=== PATIENT | female | born 1985 | race Caucasian/White ===

== ENCOUNTER 2021-05-03 07:29 | Emergency (ER) | payer MEDICAID, SELFPAY ==
[2021-05-03 07:38] VITALS: BP 145/85; PULSE 112; RESP 20; TEMP 36.8; O2SAT 98; BMI 41.3
[2021-05-03 07:43] VITALS: BP 146/78; PULSE 91; RESP 16; O2SAT 99
--- NOTE | 2021-05-03 07:56 | US_ITS ---
WS: [id number] ULTRASOUND EARLY TECHNIQUE: Transabdominal sonography of the pelvis was performed. CLINICAL INFORMATION: Right side pelvic pain, 10 weeks preg LMP: 02/19/2021 Beta hCG: Unknown. COMPARISON: None. FINDINGS: Closed Cervix measures 6.1 cm UTERUS AND GESTATIONAL SAC Intrauterine gestations: Estimated gestational age: 10w1d Estimated delivery November 28, 2021 [place] rump length (CRL): 3.3 cm. heart motion: 171 BPM. Subchorionic hemorrhage: None. OVARIES Right ovary: Simple right ovarian cyst measuring 1.6 x 1.6 cm Left ovary: Normal. FREE FLUID None. Right lower quadrant scan. Appendix not visualized. US/US OB limited [id number] IMPRESSION: 1. Single live intrauterine with pole. 2. Estimated gestational age; 10w1d 3. No free fluid in the cul-de-sac. 4. Appendix not visualized.
--- NOTE | 2021-05-03 07:59 | W.ED.PREGNAN ---
HPI - General: Chief complaint: Abdominal Pain Stated complaint: 10 WKS ,R GROIN CRAMPING Time Seen by Provider: 05/03/21 07:46 History of Present Illness: HPI Narrative: Patient is a 35-year-old female that is 10 weeks comes to the ED with right-sided pelvic pain. Symptoms started 2 days ago. Pain is located in the right pelvic region and radiates down into her right groin. She says it is episodic pain initially but within the last day has become more constant. She describes pain as sharp and it is rated a 5 out of 10 currently. Pain worsens when she walks and puts pressure on her her right leg. She has not taken any xwbt-[id number]-opewaga Tylenol for pain. Denies fever, nausea/vomiting, vaginal bleeding, vaginal discharge, bowel or UTI symptoms. Date of Last Menstrual Period: 02/19/21 Associated symptoms: Deny abdominal pain, dysuria, headache(s), nausea or vomiting Related Data: : 4 Review of Systems Const: Denies: fever(s), chills or fatigue Eyes: Denies: change in vision or eye discomfort ENMT: Denies: throat pain, odynophagia, nasal discharge or nasal congestion Card: Denies: chest pain, palpitations, edema, swelling of feet/ankles, dyspnea on exertion or orthopnea Resp: Denies: dyspnea, productive cough or non-productive cough GI: Denies: abdominal pain, nausea, vomiting, diarrhea, constipation or hematochezia : Reports: pelvic pain (Right sided) and other (10 weeks ); Denies: flank pain, dysuria or hematuria Musc: Denies: neck pain, back pain or extremity swelling Skin/Breast: Denies: rash or new lesions Neuro: Denies: headache(s), numbness in extremities or weakness in extremities PFSH ED PFSH: Medical History Anxiety and depression Female Reproductive History: Date of last menstrual period: 02/19/21 : 4 Physical Exam Const: COMMON NORMALS: no acute distress, patient oriented x3 and alert GENERAL APPEARANCE: cooperative and comfortable NUTRITIONAL APPEARANCE: obese HENMT: COMMON NORMALS: normocephalic HEAD & SCALP: normocephalic MOUTH: Normal oral and palatal mucosa present THROAT: posterior oropharynx normal and uvula midline Neck/C-Spine: COMMON NORMALS: supple GENERAL: Yes normal visual inspection Resp: COMMON NORMALS: normal respiratory effort, No retractions, No use of accessory muscles and clear to auscultation bilaterally AUSCULTATION: clear to auscultation bilaterally Cardio: COMMON NORMALS: regular rate, regular rhythm, S1 normal heart sound present, S2 normal heart sound present, No gallops present (Cardio), No clicks present (Cardio), No murmurs present (Cardio) and Peripheral pulses 2+ throughout RATE: regular rate RHYTHM: regular rhythm HEART SOUNDS: S1 normal heart sound present and S2 normal heart sound present PERIPHERAL PULSES: Peripheral pulses 2+ throughout GI: COMMON NORMALS: Normal to inspection, nondistended, normoactive bowel sounds present, Soft to palpation, non-tender and no masses PALPATION: Yes Soft to palpation OTHER: Patient has no palpable right lower quadrant tenderness or any other abdominal tenderness noted upon exam. : COMMON NORMALS: Yes no CVA tenderness BLADDER/KIDNEY EXAM: Yes no CVA tenderness Back/Pelvis: COMMON NORMALS: no CVA tenderness Extremity: COMMON NORMALS: normal to inspection Neuro: COMMON NORMALS: patient oriented x3 and moves all extremities SENSORIUM/ORIENTATION: Yes alert Skin: GENERAL SKIN EXAM: dry skin Course Vital Signs: Vital signs: Vital Signs Temperature 98.3 F 05/03/21 07:38 Pulse Rate 88 05/03/21 10:08 Respiratory Rate 16 05/03/21 10:08 Blood Pressure 134/78 05/03/21 10:08 Pulse Oximetry 97 05/03/21 10:08 MDM - OB/Uterine Contractions MDM Narrative: Medical decision making narrative: Patient is a G4, P3 35-year-old female that is 10 weeks comes to the ED right pelvic pain. She denies any vaginal bleeding or vaginal discharge, fever, chills, nausea/vomiting. Exam shows a healthy nontoxic appearing patient in no acute distress or pain. Abdomen is nontender to palpation in all 4 quadrants. Vitals are stable. CBC, CMP and UA were unremarkable. hCG quant 50,953. Ultrasound of the pelvis showed a long intrauterine that is measuring at about 10 weeks gestation. No other acute findings. Patient diagnosed with pelvic pain during and discharged home. She has an appointment with Dr. Carlson in 1 week. Return to ED precautions given. Patient understood and agreed with plan. Lab Data: Attestation: I reviewed the patient's lab results. Labs: Lab Results 05/03/21 05/03/21 05/03/21 Range/Units 08:10 08:10 08:53 WBC 11.1 H (4.0-10.0) 10^3/ uL RBC 4.44 (4.1-5.3) 10^6/u L Hgb 14.1 (11.5-15.3) g/dL Hct 41.7 (37.0-47.0) % MCV 93.9 (81-99) fl MCH 31.8 (28.0-34.0) pg MCHC 33.8 (30.0-36.0) g/dL RDW 12.8 (12.1-15.1) % Plt Count 260 (130-400) 10^3/c mm MPV 10.0 (7.4-10.4) fL Neut % (Auto) 72.8 % Lymph % (Auto) 17.4 % [place] % (Auto) 6.0 % Eos % (Auto) 3.1 % Baso % (Auto) 0.3 % Neut # (Auto) 8.08 H (1.8-7.7) 10^3/u L Lymph # (Auto) 1.9 (0.8-4.8) 10^3/u L [place] # (Auto) 0.7 (0.2-0.9) 10^3/u L Eos # (Auto) 0.4 (0.0-0.8) 10^3/u L Baso # (Auto) 0.0 (0.0-0.1) 10^3/u L Nucleated RBC % (a uto) 0 % Nucleated RBCs # 0.0 /100WBC Sodium 136 (136-145) mmol/L Potassium 3.9 (3.5-5.1) mmol/L Chloride 103 (98-107) mmol/L Carbon Dioxide 21 L (22-29) mmol/L Anion Gap 15.9 (5-19) BUN 5 L (6-20) mg/dL Creatinine 0.4 L (0.5-0.9) mg/dL GFR Calculation 183.8 H (90-130) mL/min Glucose 94 (65-115) mg/dL Calculated Osmolal ity 279 L (285-295) mOsm/k g Calcium 9.0 (8.5-10.5) mg/dL Total Bilirubin 0.2 (0.15-1.2) mg/dL AST 8 (0-32) U/L ALT 21 (0-33) U/L Alkaline Phosphata se 86 (35-105) IU/L Total Protein 6.8 (6.6-8.7) g/dL Albumin 4.0 (3.5-5.2) g/dL Globulin 2.8 (1.3-4.6) g/dL Ser , [place] [address].00 mIU/mL Urine Color Straw (Yellow) Urine Appearance Clear (CLEAR) Urine pH 8 H (5-7) Ur Specific Gravit y 1.005 (1.005-1.030) Urine Protein Neg (Negative) Urine Glucose (UA) Norm (Normal) Urine Ketones Negative (Negative) Urine Blood 2+ H (Negative) Urine Nitrate Negative (Negative) Urine Bilirubin Neg (Negative) Prot Sulfosalicyli c Acd Negative (Negative) Urine Urobilinogen Norm (Negative) mg/dL Ur Leukocyte Rani ase Negative (Negative) Urine RBC 5-10 H (0-2) /hpf Urine WBC 0-4 H (0-5) /hpf Ur Squamous Epith Cells 0-4 H (0-5) /hpf Amorphous Sediment Not Reportable Urine Bacteria Trace (NONE) /hpf Imaging Data^: US OB: Attestation: I personally reviewed and interpreted this imaging study as follows: Radiologist's impression: [address] [address] Ultrasound Report Signed Patient: Stephanie Milian Unit #: [id number] : 1985 Age/Sex: 35 / F ADM Date: 05/03/21 Loc: ER Room/Bed: Attending Dr: Ordering Provider/Ordering MD: Austin Du Date of Service: 05/03/21 Procedure(s): US OB limited [id number] Accession Number(s): [id number] Report Number: [id number] WS: [id number] ULTRASOUND EARLY TECHNIQUE: Transabdominal sonography of the pelvis was performed. CLINICAL INFORMATION: Right side pelvic pain, 10 weeks preg LMP: 02/19/2021 Beta hCG: Unknown. COMPARISON: None. FINDINGS: Closed Cervix measures 6.1 cm UTERUS AND GESTATIONAL SAC Intrauterine gestations: Estimated gestational age: 10w1d Estimated delivery November 28, 2021 [place] rump length (CRL): 3.3 cm. heart motion: 171 BPM. Subchorionic hemorrhage: None. OVARIES Right ovary: Simple right ovarian cyst measuring 1.6 x 1.6 cm Left ovary: Normal. FREE FLUID None. Right lower quadrant scan. Appendix not visualized. US/ OB limited [id number] IMPRESSION: 1. Single live intrauterine with pole. 2. Estimated gestational age; 10w1d 3. No free fluid in the cul-de-sac. 4. Appendix not visualized. Dictated By: Robert Swartz MD Signed By: Robert Swartz MD Signed Date/Time: 05/03/21938 DD/ 4 Discharge Plan Discharge Patient Disposition: Home Clinical Impression: Pelvic pain during Condition: Stable Prescriptions: No Action ceftriaxone 1 gram recon soln 1 gm IM ONCE Qty: 1 RF: 0 dexamethasone sodium phosphate 10 mg/mL solution 10 mg IM ONCE Qty: 1 RF: 0 amoxicillin-pot clavulanate [Augmentin] 875-125 mg tablet 1 tab PO BID 7 Days Qty: 14 RF: 0 sertraline [Zoloft] 50 mg tablet 50 mg PO DAILY Qty: 30 RF: 0 Discharge Orders: Discharge ED (Routine); Ordered 05/03/21 Ordered By: Austin Du Referrals: Roger Carlson MD [Primary Care Provider] - Discharge Diet: Regular Discharge Activity: Resume usual activity Patient Instructions: (ED) Activity Restrictions/Additional Instructions: Follow-up with Dr. Carlson at your next scheduled appointment. Take [id number] Tylenol per bottle instruction for any pain. Return to the ER or your medical provider if condition worsens. Please read and understand discharge instructions. Thank you for choosing [facility] for your healthcare needs today. Please realize this is an emergency room and that we are providing you with a medical screening exam and this may not be complete and all inclusive of all the testing and or work up that you may need to determine your ailment or severity of your illness. It is very important that you follow up as instructed or that you return to the Emergency Department should you have concerns or if your condition changes or worsens in any way. Coding Level of Care Code ED Electrolysis Engineer for Zachary Knott Exam Comprehensive
[2021-05-03 08:17] LABS: Basophils % 0.3 %; Eosinophils # 0.4 10^3/uL (0.0-0.8); Eosinophils % 3.1 %; Hematocrit 41.7 % (37.0-47.0); Hemoglobin 14.1 g/dL (11.5-15.3); Lymphocytes # 1.9 10^3/uL (0.8-4.8); Lymphocytes % 17.4 %; Mean Corpuscular HGB Conc 33.8 g/dL (30.0-36.0); Mean Corpuscular Hemoglobin 31.8 pg (28.0-34.0); Mean Corpuscular Volume 93.9 fl (81-99); Monocytes # 0.7 10^3/uL (0.2-0.9); Neutrophils # 8.08 10^3/uL (1.8-7.7); Neutrophils % 72.8 %; Nucleated Red Blood Cells % 0 %; Platelet Count 260 10^3/cmm (130-400); Red Blood Count 4.44 10^6/uL (4.1-5.3); Red Cell Distribution Width 12.8 % (12.1-15.1); White Blood Count 11.1 10^3/uL (4.0-10.0)
[2021-05-03 08:46] LABS: Alanine Aminotransferase 21 U/L (0-33); Alkaline Phosphatase 86 IU/L (35-105); Anion Gap 15.9 (5-19); Aspartate Amino Transferase 8 U/L (0-32); Blood Urea Nitrogen 5 mg/dL (6-20); Carbon Dioxide 21 mmol/L (22-29); Chloride 103 mmol/L (98-107); Globulin 2.8 g/dL (1.3-4.6); Glomerular Filtration Rate 183.8 mL/min (90-130); Glucose 94 mg/dL (65-115); Osmolality Calculated 279 mOsm/kg (285-295); Potassium 3.9 mmol/L (3.5-5.1); Sodium 136 mmol/L (136-145); Total Bilirubin 0.2 mg/dL (0.15-1.2); Total Protein 6.8 g/dL (6.6-8.7)
[2021-05-03] MEDS: acetaminophen 500 mg Tablet 1000 MG PO (08:48)
[2021-05-03 08:49] VITALS: BP 133/79; PULSE 87; RESP 14; O2SAT 98
[2021-05-03 09:35] LABS: Bilirubin Urine Neg (Negative); Blood Urine 2+ (Negative); Glucose Urine UA Norm (Normal); Ketones Urine Negative (Negative); Leukocyte Esterase Urine Negative (Negative); Nitrate Urine Negative (Negative); Protein Urine Neg (Negative); Specific Gravity, Urine 1.005 (1.005-1.030); Sulfosalicylic Acid Urine Negative (Negative); Urine Appearance Clear (CLEAR); Urine Color Straw (Yellow); Urobilinogen Urine Norm (Negative); pH Urine 8 (5-7)
[2021-05-03 09:36] LABS: Add Urine Culture? No; Bacteria Urine TRACE /hpf; Squamous Epithelial Cell Urine 0-4 /hpf (0-5); WBC Urine 0-4 /hpf (0-5)
[2021-05-03 10:08] VITALS: BP 134/78; PULSE 88; RESP 16; O2SAT 97
== END 2021-05-03 10:08 | disposition home or self-care (01) ==
PROVIDERS: Emergency Provider Physician Assistant; PCP Family Medicine
DX: O26.891 Other specified pregnancy related conditions, first trimester (principal); R10.2 Pelvic and perineal pain; Z3A.10 10 weeks gestation of pregnancy
CPT/HCPCS: 76815; 80053; 81001; 84702; 85025; 99283

== ENCOUNTER 2021-06-05 16:55 | Emergency (ER) | payer MEDICAID, SELFPAY ==
[2021-06-05 17:20] VITALS: PULSE 95; RESP 18; TEMP 37.1; O2SAT 98; BMI 41.8
--- NOTE | 2021-06-05 17:53 | USR_ITS ---
PROCEDURE INFORMATION: Exam: US , Limited Exam date and time: 06/05/2021 5:53 PM Age: 35 years old Clinical indication: complicated by abdominal or pelvic pain; Right lower quadrant; Second trimester (14 weeks 0 days to 27 weeks 6 days); Gestational age or lmp: 15 w 1 day; ; Additional info: Transabdominal eval of baby TECHNIQUE: Imaging protocol: Real-time ultrasound of the maternal uterus with image documentation. Exam focused on the clinical indication. COMPARISON: US OB limited [id number] 05/03/2021 8:23 AM FINDINGS: Gestation: Single live intrauterine gestation. heart rate: 150 bpm. Placenta: No subchorionic hemorrhage. BIOMETRY: Gestational age (AUA): 15 weeks 1 day. Estimated due date (AUA): 11/26/2021 Femur length: 15 weeks 1 day MATERNAL: Uterus: Uterine contours are normal. The cervix is long and closed. US/US OB limited [id number] IMPRESSION: Single live intrauterine of 15 weeks 1 day. No apparent complications.
[2021-06-05 18:07] VITALS: BP 152/75; PULSE 98; RESP 16; TEMP 36.8; O2SAT 98
[2021-06-05] MEDS: acetaminophen 500 mg Tablet PO (18:22)
[2021-06-05 18:41] LABS: Add Urine Microscopic? YES; Bilirubin Urine Neg (Negative); Blood Urine 3+ (Negative); Glucose Urine UA Norm (Normal); Ketones Urine Negative (Negative); Leukocyte Esterase Urine Negative (Negative); Nitrate Urine Negative (Negative); Protein Urine Neg (Negative); Urine Appearance Clear (CLEAR); Urine Color Yellow (Yellow); Urobilinogen Urine Norm (Negative); pH Urine 6 (5-7)
[2021-06-05 18:47] LABS: RBC Urine 15-25 /hpf (0-2)
[2021-06-05 18:48] LABS: Add Urine Culture? Yes; Bacteria Urine TRACE /hpf; Mucus Urine TRACE /hpf; Squamous Epithelial Cell Urine 0-4 /hpf (0-5)
--- NOTE | 2021-06-05 18:58 | W.ED.GENADLT ---
HPI - General Adult General: Chief complaint: Abdominal Pain Stated complaint: 15 weeks /cramping since yesterday Time Seen by Provider: 06/05/21 17:53 History of Present Illness: HPI narrative: 35F F presenting to the ED for pelvic cramping. Intermittent every 3-4 hrs. Patient denies any regular or forceful contractions. Denies any new vaginal discharge, passage of clots, gush of fluid, fever/chills, worsening dental pain, nausea/vomiting or any other acute findings. Patient is followed by Dr. Ac. Onset: 3 days ago Duration:3 days Location:home Severity:mild/moderate Review of Systems Narrative: Constitutional: No fever, no chills. HEENT: No vision changes CV: No chest pain, no palpitations PULM: no cough, no dyspnea. GI: No abdominal pain, no N/V/D. : No dysuria, +pelvic cramps MSKEL: No muscle pain SKIN: No new rashes, no lesions. NEURO: No headache, no focal weakness. HEME: No visible bruises PSYCH: Normal mood PFSH ED PFSH: Medical History Anxiety and depression Female Reproductive History: Date of last menstrual period: 02/19/21 : 4 Physical Exam Narrative: EXAM NARRATIVE: Head: Atraumatic Eyes: PERRL, conjunctiva without injection ENT: Mucous membrane moist NECK: Supple, ROM intact LUNGS: LCTAB, no crackles/rhonchi CV: RRR ABDOMEN: Soft, nontender in all quadrants EXTREMITY: Normal ROM SKIN: No rash or erythema NEURO: Awake and alert, no focal motor deficits PSYCH: Normal mood and affect Course Vital Signs: Vital signs: Vital Signs Temperature 98 F 06/05/21 19:04 Pulse Rate 96 06/05/21 19:04 Respiratory Rate 16 06/05/21 19:04 Blood Pressure 145/82 06/05/21 19:04 Pulse Oximetry 99 06/05/21 19:04 MDM - General Adult MDM Narrative: Medical decision making narrative: 35-year-old female who presents the emergency room with pelvic cramps. On exam, patient is hemodynamically stable. Deferred pelvic exam per request of patient. Transabdominal ultrasound confirms IUP. At present time, given no signs of vaginal bleeding or regular/or frequent contraction, decision was made to defer blood work. I have given patient Tylenol with some symptomatic improvement. Patient is instructed to follow-up with Dr. Ac for further evaluation of symptoms. Disposition: Discharge. Patient counseled regarding diagnostic impression, treatment plan. Patient given ED strict return precautions to return for continuation, worsening, or development of new symptoms. Instructed to f/u w/ PCP regarding symptoms today. Patient verbalized understanding. Lab Data: Labs: Lab Results 06/05/21 18:19 Urine Color Yellow (Yellow) Urine Appearance Clear (CLEAR) Urine pH 6 (5-7) Ur Specific Gravit y 1.010 (1.005-1.030) Urine Protein Neg (Negative) Urine Glucose (UA) Norm (Normal) Urine Ketones Negative (Negative) Urine Blood 3+ H (Negative) Urine Nitrate Negative (Negative) Urine Bilirubin Neg (Negative) Urine Urobilinogen Norm mg/dL mg/dL (Negative) Ur Leukocyte Rani ase Negative (Negative) Urine RBC 15-25 /hpf H /hpf (0-2) Urine WBC None /hpf /hpf (0-5) Ur Squamous Epith Cells 0-4 /hpf H /hpf (0-5) Amorphous Sediment Not Reportable Urine Bacteria Trace /hpf /hpf (NONE) Urine Mucus Trace /hpf /hpf Imaging Data^: Other Imaging: Radiologist's impression: [address] [id number] ReportSigned Patient: Stephanie Milian #: [id number]: 1985Acct#:[id number]/Sex: 35 / FADM Date: 06/05/21Loc: ERRoom/Bed:Attending Dr: Ordering Provider/Ordering MD: Robert Mccoy MD Date of Service: 06/05/21 Procedure(s): US OB limited [id number] Accession Number(s): [id number] Report Number: [id number] PROCEDURE INFORMATION: Exam: US , Limited Exam date and time: 06/05/2021 5:53 PM Age: 35 years old Clinical indication: complicated by abdominal or pelvic pain; Right lower quadrant; Second trimester (14 weeks 0 days to 27 weeks 6 days); Gestational age or lmp: 15 w 1 day; ; Additional info: Transabdominal eval of baby TECHNIQUE: Imaging protocol: Real-time ultrasound of the maternal uterus with image documentation. Exam focused on the clinical indication. COMPARISON: OB limited [id number] 05/03/2021 8:23 AM FINDINGS: Gestation: Single live intrauterine gestation. heart rate: 150 bpm. Placenta: No subchorionic hemorrhage. BIOMETRY: Gestational age (AUA): 15 weeks 1 day. Estimated due date (AUA): 11/26/2021 Femur length: 15 weeks 1 day MATERNAL: Uterus: Uterine contours are normal. The cervix is long and closed. US/ OB limited [id number] IMPRESSION: Single live intrauterine of 15 weeks 1 day. No apparent complications. Dictated By:Jakob Currieigned By:Jakob Currie Date/Time:06/05/21D/ 50 Discharge Plan Discharge Patient Disposition: Home Clinical Impression: Pelvic cramping Condition: Stable Prescriptions: New acetaminophen 500 mg tablet 500 mg PO Q6H PRN (Reason: pain) 5 Days Qty: 20 RF: 0 No Action ceftriaxone 1 gram recon soln 1 gm IM ONCE Qty: 1 RF: 0 dexamethasone sodium phosphate 10 mg/mL solution 10 mg IM ONCE Qty: 1 RF: 0 amoxicillin-pot clavulanate [Augmentin] 875-125 mg tablet 1 tab PO BID 7 Days Qty: 14 RF: 0 sertraline [Zoloft] 50 mg tablet 50 mg PO DAILY Qty: 30 RF: 0 Discharge Orders: Discharge ED (Routine); Ordered 06/05/21 Ordered By: Robert Mccoy Referrals: Roger Carlson MD [Primary Care Provider] - Discharge Diet: Advance as tolerated Discharge Activity: Resume usual activity Patient Instructions: Early Labor Signs (ED), Muscle Cramp (ED) Activity Restrictions/Additional Instructions: Come back to the emergency room if you notice your contractions are more regular and more forceful. Please follow-up with Dr. Ac in the next few days. Come back if you have any new vaginal discharge, bleeding, fever/chills, worsening abdominal pain, or any new or concerning complaints. Coding Level of Care Code ED Living Skills Advisor for Chg Hedy
[2021-06-05 19:04] VITALS: BP 145/82; PULSE 96; RESP 16; TEMP 36.6; O2SAT 99
== END 2021-06-05 19:11 | disposition home or self-care (01) ==
PROVIDERS: Emergency Provider Emergency Medicine; PCP Family Medicine
DX: O26.892 Other specified pregnancy related conditions, second trimester (principal); R10.2 Pelvic and perineal pain; Z3A.15 15 weeks gestation of pregnancy
CPT/HCPCS: 76815; 81001; 87086; 99283

== ENCOUNTER → 2021-06-09 13:29 | Outpatient (BNVA) | payer MEDICAID, SELFPAY | PROVIDERS: PCP Family Medicine; Visit Provider Nurse Practitioner Women's Health | DX: N92.6 Irregular menstruation, unspecified (principal); F41.9 Anxiety disorder, unspecified; F32.9 Major depressive disorder, single episode, unspecified | CPT/HCPCS: 81025 ==

== ENCOUNTER → 2021-06-16 10:50 | Outpatient (BNVA) | payer MEDICAID, SELFPAY | PROVIDERS: PCP Family Medicine; Visit Provider Nurse Practitioner Women's Health | DX: Z34.80 Encounter for supervision of other normal pregnancy, unspecified trimester (principal) | CPT/HCPCS: 81000; 87086 ==

== ENCOUNTER → 2021-06-20 08:19 | Outpatient (BNVA) | payer MEDICAID, SELFPAY | PROVIDERS: PCP Family Medicine; Visit Provider Obstetrics & Gynecology | DX: Z34.80 Encounter for supervision of other normal pregnancy, unspecified trimester | CPT/HCPCS: 80307; 81000; 85025; 86592; 86762; 86803; 86850; 86900; 87086; 87340; 87491; 87591; 87624; 87661 ==

== ENCOUNTER → 2021-07-12 14:08 | Outpatient (BNVA) | payer MEDICAID, SELFPAY | PROVIDERS: PCP Family Medicine; Visit Provider Obstetrics & Gynecology | DX: Z34.80 Encounter for supervision of other normal pregnancy, unspecified trimester (principal) | CPT/HCPCS: 82950 ==

== ENCOUNTER 2021-10-25 18:45 | Outpatient (CLI) | payer MEDICAID, SELFPAY ==
[2021-10-25] VITALS (11 sets, daily range): BP systolic 108–133; BP diastolic 51–65; PULSE 85–103; RESP 17; TEMP 36–36.3; BMI 41.9
[2021-10-25 20:14] LABS: Amphetamines Screen Urine Negative (Negative); Barbiturates Screen Urine Negative (Negative); Benzodiazepines Screen Urine Positive (Negative); Cocaine Screen Urine Negative (Negative); Opiate Screen Urine Negative (Negative); PCP Screen Urine Negative (Negative); THC Screen Urine Negative (Negative)
[2021-10-25 20:39] LABS: Bilirubin Urine Neg (Negative); Blood Urine 2+ (Negative); Glucose Urine UA Norm (Normal); Ketones Urine 2+ (Negative); Leukocyte Esterase Urine 2+ (Negative); Nitrate Urine Negative (Negative); Protein Urine Trace (Negative); Urine Appearance Clear (CLEAR); Urine Color Yellow (Yellow); Urobilinogen Urine Norm (Negative); pH Urine 7 (5-7)
[2021-10-25 20:40] LABS: Add Urine Culture? No; Bacteria Urine TRACE /hpf; RBC Urine 0-4 /hpf (0-2); WBC Urine 0-4 /hpf (0-5)
== END 2021-10-25 21:30 | disposition home or self-care (01) ==
LOC: OPOB 18:46 → OBGYN 18:48
PROVIDERS: PCP Family Medicine; Visit Provider Obstetrics & Gynecology
DX: O26.899 Other specified pregnancy related conditions, unspecified trimester (principal); Z3A.00 Weeks of gestation of pregnancy not specified; R10.9 Unspecified abdominal pain
CPT/HCPCS: 59025; 80306; 81001; 99211

== ENCOUNTER 2023-12-16 16:50 | Emergency (ER) | payer MEDICAID, SELFPAY ==
[2023-12-16 17:03] VITALS: BP 141/78; PULSE 104; RESP 17; TEMP 37.4; O2SAT 98; BMI 39.5
--- NOTE | 2023-12-16 17:11 | ED_ITS ---
HPI - Dental/Oral General: Chief complaint: Dental/Oral Stated complaint: Mouth pain Time Seen by Provider: 12/16/23 17:10 History of Present Illness: Patient comes in today with complaints of pain to the right upper jaw with the first premolar. Patient endorses pain for the last 24 hours. Patient has fair dentition. Patient is noticeable caries. No facial swelling is noted. Review of Systems General: Reports: 10 or more systems reviewed and unremarkable except in HPI and below ENMT: Reports: dental pain PFSH ED PFSH: Medical History Anxiety and depression No pertinent past medical history neg dx:htn,dm,thyroid,dvt/pe PCP: Dr. Mcguire Surgical History Hx of cholecystectomy 2014 Family History Grandmother Diabetes paternal Breast cancer maternal great grandmother Denies family history of Colon cancer Ovarian cancer Clotting disorder Bleeding disorder Hypertension Uterine cancer Thyroid disease Stroke Physical Exam Const: COMMON NORMALS: alert HENMT: COMMON NORMALS: normocephalic HEAD & SCALP: normocephalic FACE & SINUS: no edema MOUTH: Normal oral and palatal mucosa present TEETH & GINGIVA: Yes abnormal tooth and associated gingiva (Dental caries, erythema of the gingiva right upper premolar area) Neck/C-Spine: COMMON NORMALS: full ROM Resp: COMMON NORMALS: normal respiratory effort Cardio: COMMON NORMALS: regular rate RATE: regular rate GI: COMMON NORMALS: non-tender Extremity: COMMON NORMALS: full ROM Neuro: SENSORIUM/ORIENTATION: Yes alert Skin: COMMON NORMALS: turgor normal GENERAL SKIN EXAM: turgor normal Course Vital Signs: Vital signs: Vital Signs Temperature 99.3 F 12/16/23 17:03 Pulse Rate 104 H 12/16/23 17:03 Respiratory Rate 17 12/16/23 17:03 Blood Pressure 141/78 12/16/23 17:03 Pulse Oximetry 98 12/16/23 17:03 Oxygen Delivery Me thod Room Air 12/16/23 17:03 MDM - Dental/Oral Medical Decision Making 38-year-old female comes in today for complaints of right upper jaw pain. On exam we note erythema along the gingiva and a carious premolar tooth. Diff erential diagnosis includes dental abscess, dental caries, dental pain. No signs of serious illness is noted. Patient will be started on Augmentin with ketorolac for pain. Patient reports understanding of care plan need for follow- up or return to the ER. No radiology studies performed this visit Discharge Plan Discharge Patient Disposition: Home Clinical Impression: Dental abscess Condition: Stable Prescriptions: New amoxicillin-pot clavulanate 875-125 mg tablet 1 tab PO BID Qty: 14 0RF ketorolac 10 mg tablet 10 mg PO Q6H PRN (Reason: pain) Qty: 12 0RF Rx Instructions: do not take with naproxen or ibuprofen containing products No Action prenat.vits,valeria,tgf-qlam-dnsng Tablet 1 tab PO DAILY Unisom (doxylamine) 25 mg tablet 25 mg PO Q6H PRN (Reason: Sleep) sertraline [Zoloft] 50 mg tablet 50 mg PO DAILY Qty: 30 0RF Discharge Orders: Discharge ED (Routine); Ordered 12/16/23 Ordered By: Darius Stacy Referrals: Roger Carlson MD [Primary Care Provider] - Discharge Diet: Usual diet Discharge Activity: Increase activity as tolerated Patient Instructions: Toothache (ED) Activity Restrictions/Additional Instructions: Take antibiotic as directed. Drink plenty of water and fluids. Use ketorolac as needed for pain. Follow-up with primary care as needed. Follow-up with dentist for definitive care. Coding Level of Care Code ED Radio Sales Account Executive for Zachary Knott
[2023-12-16] MEDS: ketorolac 10 mg Tablet PO (17:34)
[2023-12-16] MEDS: amoxicillin-clav 875-125 mg Tablet 1 TAB PO (17:34)
[2023-12-16 17:35] VITALS: BP 138/80; PULSE 98; RESP 16; TEMP 37.4; O2SAT 99
== END 2023-12-16 17:35 | disposition home or self-care (01) ==
PROVIDERS: Emergency Provider Nurse Practitioner Family; PCP Family Medicine
DX: K04.7 Periapical abscess without sinus (principal)
CPT/HCPCS: 99283